=== PATIENT | female | born 1955 ===

== ENCOUNTER 2018-09-18 06:34 | Inpatient (IN) | payer MEDICARE, OTHER ==
[2018-09-18] MEDS ORDERED: Absorbable Gelatin Sponge Size 12-7 ONE (07:11)
[2018-09-18] MEDS ORDERED: Bupivacaine 0.5% Inj(30mL) ONE (07:12)
[2018-09-18] MEDS ORDERED: Thrombin Topical 5,000 Int Units Spray Kit ONE (07:12)
[2018-09-18] MEDS ORDERED: Propofol 10 mg/ml Inj (20 ML) ONE (07:19)
[2018-09-18] MEDS ORDERED: Midazolam 2 MG/2 ML VIAL ONE (07:19)
[2018-09-18] MEDS ORDERED: Lidocaine 4% (Laryng-O-Jet) Kit MM ONE (07:20)
[2018-09-18] MEDS ORDERED: ePHEDrine 50 mg/ml Inj ONE (07:20)
[2018-09-18] MEDS ORDERED: Rocuronium 10 mg/ml (5 ml) ONE ×2 (07:20→08:52)
[2018-09-18] MEDS ORDERED: Succinylcholine 200 mg/10 ml Inj IV ONE (07:23)
--- NOTE | 2018-09-18 07:28 | CP.PCM.CON ---
History of Present Illness - History of Present Illness History of Present Illness: Neurosurgical H&P/consult: Dr. Elizabeth Patient is a 63 y/o female who presents for elective lumbar laminectomy and fusion due to chronic lower back pain. The patient has had non-traumatic lower back pain for many years that has progressively worsened over the past few months. The pain has hindered her daily activities including walking and stairclimbing. She has tried and failed conservative management with PT and oral meds. She has also had vague history of lower back surgery while in [facility] many years ago which did not help with her symptoms. The pain is daily, intermittent and dull in quality. The pain radiates to the RLE with occasional numbness/tingling. She denies any bowel/bladder dysfunction or saddle paresthesias. She denies any CP/SOB/N/V/D/fever/dysuria/melena. PMH: pre-DM, anxiety, HTN PSH: lower back surgery, cholecystectomy meds: as per med rec Allergy: apples SH: denies tobacco/ETOH/drug use Review of Systems - Review of Systems All systems: reviewed and no additional remarkable complaints except Review of Systems: as per HPI Past Patient History - Infectious Disease Hx of Infectious Diseases: None - Past Medical History & Family History Past Medical History?: Yes Past Family History: Reviewed and not pertinent - Past Social History Smoking Status: Never Smoked - CARDIAC Hx Cardiac Disorders: Yes Hx Hypercholesterolemia: Yes - PULMONARY Hx Respiratory Disorders: No - NEUROLOGICAL Hx Neurological Disorder: No HX Cerebrovascular Accident: No - HEENT Hx HEENT Problems: No - RENAL Hx Chronic Kidney Disease: No - ENDOCRINE/METABOLIC Hx Endocrine Disorders: No - HEMATOLOGICAL/ONCOLOGICAL Hx Blood Disorders: No Hx Anemia: No Hx Blood Transfusions: No - INTEGUMENTARY Hx Dermatological Problems: No - MUSCULOSKELETAL/RHEUMATOLOGICAL Hx Musculoskeletal Disorders: Yes Hx Arthritis: Yes Hx Back Pain: Yes Hx Herniated Disk: Yes (ON THE NECK) - GASTROINTESTINAL Hx Gastrointestinal Disorders: No Hx Gall Bladder Disease: No Hx Gastritis: No - GENITOURINARY/GYNECOLOGICAL Hx Genitourinary Disorders: No - PSYCHIATRIC Hx Emotional Abuse: No Hx Physical Abuse: No - SURGICAL HISTORY Hx Surgeries: Yes Hx Section: Yes Hx Cholecystectomy: Yes Hx Musculoskeletal Surgery: Yes (back surgery) Hx Open Heart Surgery: No Other/Comment: BACK SURGERY/GALLBLADDER;HERNIA SURGERY - ANESTHESIA Hx Anesthesia: Yes Hx Anesthesia Reactions: No Hx Malignant Hyperthermia: No Has any member of the family had a problem w/ anesthesia?: No Meds Allergies/Adverse Reactions: Allergies Allergy/AdvReac Type Severity Reaction Status Date / Time apple Allergy ITCHING Verified 11/12/16 08:54 Physical Exam - Constitutional Appears: Well, No Acute Distress - Head Exam Head Exam: ATRAUMATIC, NORMOCEPHALIC - Eye Exam Eye Exam: EOMI, Normal appearance - ENT Exam ENT Exam: Mucous Membranes Moist - Respiratory Exam Respiratory Exam: NORMAL BREATHING PATTERN - Back Exam Additional comments: Lumbar: old scar well healed diffuse midline and paraspinal tenderness sensation intact SP/DP/TN motor intact EHL/FHL/TA/G neg clonus b/l + SLR - Neurological Exam Neurological exam: Alert, CN II-XII Intact, Oriented x3 - Psychiatric Exam Psychiatric exam: Normal Affect, Normal Mood - Skin Skin Exam: Normal Color, Warm Results - Vital Signs Recent Vital Signs: Last Vital Signs Temp 97.8 F 09/18/18 06:59 Pulse 81 09/18/18 06:59 Resp 18 09/18/18 06:59 BP 115/77 09/18/18 06:59 Pulse Ox 98 09/18/18 06:59 - Impressions Impression: MRI of lumbar spine from outside facility reveals lumbar spondylosis at L3-4 and L4-5 Assessment & Plan (1) Lumbar spondylosis Assessment and Plan: Dr. Elizabeth has seen, examined the patient and reviewed her imaging. The plan is to perform lumbar laminectomy and fusion at L3-4 and L4-L5, possible other levels. Risks/benefits/alternatives were explained to the patient who understands and agrees to proceed with the surgery above. NPO Admit to Dr. Garcia D/w Dr. Elizabeth who agrees with above Status: Acute - Date & Time Date: 09/18/18 Time: 07:15
[2018-09-18] MEDS ORDERED: Lactated Ringer's 1,000 ML IV ONE ×2 (07:49→09:25)
[2018-09-18] MEDS ORDERED: Dexamethasone 4 mg/1 ml ONE (08:08)
[2018-09-18 08:29] VITALS: BMI 27.1
[2018-09-18] MEDS ORDERED: HEMOSTATIC MATRIX 10 ML DIS.NEEDLE TOP ONE (09:15)
[2018-09-18] MEDS ORDERED: Neostigmine 1:1000 (1 mg/ml) Inj ONE (09:50)
[2018-09-18] MEDS ORDERED: Bupivacaine 0.5% 50 ML IJ ONE (10:09)
[2018-09-18] MEDS ORDERED: Oxycodone/Acetaminophen 5/325 mg Tab PO PRN ×2 (10:29)
[2018-09-18] MEDS ORDERED: HYDROmorphone 0.5 mg/0.5 ml ISec IVP PRN (10:54)
[2018-09-18] MEDS ORDERED: Lactated Ringer's 1,000 ML IV SCH ×2 (11:00→12:45)
--- NOTE | 2018-09-18 12:30 | PCM.SURG1 ---
Surgeon's Initial Post Op Note - Surgeon's Notes Surgeon: Ian Elizabeth MD Hired Hand: Nilesh Marcial PA-C Type of Anesthesia: General Endo Anesthesia Administered By: Kellee Chu MD Pre-Operative Diagnosis: Lumbar spondylosis Operative Findings: See complete operative report Post-Operative Diagnosis: Lumbar spondylosis at L3-4 and L4-5 Operation Performed: Lumbar laminectomy and fusion at L3-4 and L4-5 Specimen/Specimens Removed: none Estimated Blood Loss: EBL {In ML}: 50 Blood Products Given: N/A Drains Used: Elian Wesley (x 2 bilateral back) Post-Op Condition: Good Date of Surgery/Procedure: 09/18/18 Time of Surgery/Procedure: 08:10
[2018-09-18] MEDS ORDERED: DiphenhydrAMINE 50 mg/ml Inj IVP PRN (12:32)
[2018-09-18] MEDS ORDERED: DiphenhydrAMINE 50 mg/ml Inj ONE (12:36)
--- NOTE | 2018-09-18 13:49 | RAD ---
Date of service: 09/18/2018 PROCEDURE: Fluoroscopic assistance in excess of 1 hour. HISTORY: PLIF COMPARISON: None. TECHNIQUE: Standard protocol for this study/examination. FINDINGS: Total fluoroscopic time (continuous mode) utilized during the procedure 58.6 seconds. Total exam DLP: 48.63 (mGy). IMPRESSION: Submitted images from the current procedure: 2.0
[2018-09-18] MEDS: ceFAZolin 1 GM in Sodium Chloride 0.9% 100 ML IVPB SCH (17:11)
--- NOTE | 2018-09-18 22:35 | OP ---
PROCEDURE DATE: 09/18/2018 PREOPERATIVE DIAGNOSIS: Lumbar spondylosis. POSTOPERATIVE DIAGNOSIS: Lumbar spondylosis. PROCEDURE: L3, L4, L5 pedicle screw fixation, instrumentation using spinal elements, L3 and L4 and L5 laminectomy and L3 to L5 posterolateral fusion. Fluoroscopy has been used. Microscopy has been used. SURGEON: Ian Elizabeth MD MOLD SWABBER: Nilesh Marcial, physician certified ophthalmic surgical assistant who helped me to perform the surgery. DESCRIPTION OF PROCEDURE: The patient was brought to the operating room, anesthetized with general endotracheal anesthesia, placed in a prone position on the Elian table. Care was taken to protect all pressure points. Back of the lumbar area was thoroughly prepped and draped in a standard sterile manner after marking for skin incision for lumbar laminectomy. The previously made skin incision scar has been noted. After prepping and draping the area, skin has been incised. Bleeding skin has been controlled with bipolar contract clerk automobile. After using the Bovie contract clerk automobile, paraspinal muscles have been detached, attachments of spinous process, lamina of L3, L4, L5 bilaterally. Identification of the levels has been done with the help of fluoroscopy by using a traditional landmark, point of entry noted for pedicles of L3, L4, L5. Initially, a K-wire and later a drill has been used in order to enter the pedicles. Polyaxial titanium screws of spinal elements have been placed. Bone was found to be relatively soft. Titanium rods have been placed. Cap nuts have been used in order to secure them. After this under magnification on the right side, hemilaminotomy and medial facetectomy done at L3-L4 and L4-L5. The previously done surgery resultant scar tissue has been removed. Foraminotomy was performed. Decompression has been achieved at L3-L4 and L4-L5. After that lateral aspect of the facet joints and transverse process have been decorticated. Demineralized bone placed in the area achieving a posterolateral fusion. After that hemostasis was best achieved. Elian drain was placed on the wound and brought out through a separate stab neck skin incision. Muscles and fascia were closed with 1 Vicryl, subcutaneous tissue with 3-0 Vicryl, skin has been done with intradermal stitches. The patient tolerated the procedure. After the procedure, mobilized to the recovery room in stable condition. Ian Elizabeth MD [facility] # [id number]
[2018-09-19] MEDS: ceFAZolin 1 GM in Sodium Chloride 0.9% 100 ML IVPB SCH ×3 (00:25→16:17)
[2018-09-19 07:08] LABS: MEAN CELL VOLUME 80.4 fl (81.0-99.0); MEAN CORPUSCULAR HEMOGLOBIN 26.6 pg (27.0-31.0); MEAN CORPUSCULAR HGB CONC 33.1 g/dL (33.0-37.0); RBC 4.13 Mil/uL (3.80-5.20); RED CELL DISTRIBUTION WIDTH 13.7 % (11.5-14.5); WHITE BLOOD COUNT 11.1 K/uL (4.8-10.8)
[2018-09-19 07:15] LABS: BLOOD UREA NITROGEN 15 mg/dl (7-17); CALCIUM 8.9 mg/dL (8.4-10.2); GFR NON-AFRICAN AMERICAN > 60
[2018-09-19] MEDS: Cholecalciferol 1,000 INTLU TAB PO SCH (09:02)
--- NOTE | 2018-09-19 16:15 | CP.PCM.PN ---
Subjective - Date & Time of Evaluation Date of Evaluation: 09/19/18 Time of Evaluation: 15:30 - Subjective Subjective: Patient seen and examined at bedside comfortable. Pain is well controlled. Able to ambulate with PT without issues. Complaining of RLE spasm which was presents preop, but is more pronounced today. Objective - Vital Signs/Intake and Output Vital Signs (last 24 hours): Temp Pulse Resp BP Pulse Ox 98 F 81 20 102/64 92 L 09/19/18 16:11 09/19/18 16:11 09/19/18 16:11 09/19/18 16:11 09/19/18 16:11 Intake and Output: 09/19/18 09/19/18 06:59 18:59 Intake Total 1000 Output Total 120 Balance 880 - Medications Medications: Current Medications Acetaminophen (Tylenol 325mg Tab) 650 mg PO Q4 PRN PRN Reason: Fever 101 degrees fahrenheit Alprazolam (Xanax) 0.25 mg PO ONCE PRN PRN Reason: Anxiety Atorvastatin Calcium (Lipitor) 20 mg PO DAILY [facility] Last Admin: 09/19/18 09:02 Dose: 20 mg Cholecalciferol (Vitamin D) 5,000 intlu PO DAILY [facility] Last Admin: 09/19/18 09:02 Dose: 5,000 intlu Cyclobenzaprine HCl (Flexeril) 5 mg PO Q8 PRN PRN Reason: Muscle spasm Dexamethasone (Decadron) 4 mg PO Q8 [facility] Last Admin: 09/19/18 09:02 Dose: 4 mg Docusate Sodium (Colace) 100 mg PO BID [facility] Last Admin: 09/19/18 09:00 Dose: 100 mg Hydromorphone HCl (Dilaudid) 0.5 mg IVP Q10M PRN PRN Reason: Pain, moderate (4-7) Last Admin: 09/19/18 14:40 Dose: 0.5 mg Cefazolin Sodium 1 gm/ Sodium (Chloride) 100 mls @ 100 mls/hr IVPB Q8 [facility]; Protocol Last Admin: 09/19/18 11:49 Dose: 100 mls/hr Morphine Sulfate (Morphine) 2 mg IVP Q4 PRN PRN Reason: Pain, severe (8-10) Last Admin: 09/19/18 09:05 Dose: 2 mg Ondansetron HCl (Zofran Inj) 4 mg IVP Q4 PRN PRN Reason: Nausea/Vomiting Oxycodone/Acetaminophen (Percocet 5/325 Mg Tab) 2 tab PO Q4 PRN PRN Reason: Pain, moderate (4-7) Stop: 09/21/18 10:30 Oxycodone/Acetaminophen (Percocet 5/325 Mg Tab) 1 tab PO Q4 PRN PRN Reason: Pain, Mild (1-3) Stop: 09/21/18 10:30 - Labs Labs: 09/19/18 06:50 09/19/18 06:50 - Back Exam Additional comments: Abd binder in place Dressings CDI CLARI drains intact with moderate drainage sensation intact SP/DP/TN motor intact EHL/FHL continuous rhythmic spasm of RLE, decreased when at rest Assessment and Plan (1) Lumbar spondylosis Assessment & Plan: POD# 1 s/p Lumbar laminectomy and fusion L3-5 -Dr. Elizabeth recommends neurology consult for RLE spasms -maintain drains due to large output, will monitor -PT/OT -pain controlled -d/w Dr. Elizabeth who agrees with above Status: Acute
[2018-09-20] MEDS: ceFAZolin 1 GM in Sodium Chloride 0.9% 100 ML IVPB SCH ×3 (00:31→17:08)
--- NOTE | 2018-09-20 02:01 | CP.PCM.HP ---
History of Present Illness - History of Present Illness History of Present Illness: CC: Lower back pain. HPI: 63 y/o female with a PMH of chronic back problems is currently admitted to the medical-surgical unit s/p lumbar laminectomy with Dr. Elizabeth (neurosurgery). At present, the pt reports doing well and in minimal pain post-operatively. CLARI drains are currently draining serosanguinous fluid in a moderate amount. The pt is currently complaining of continuous, involuntary tremor/spasm to the RLE. PMH: Pre-DM, anxiety, HTN. PSH: Lower back surgery, cholecystectomy. Allergies: Apple. Review of Systems: Reviewed and no additional remarkable complaints except RLE spasm/tremor. Objective Appears: Calm, Non-toxic, No Acute Distress. Head Exam: NORMAL INSPECTION, normocephalic. Eye Exam: Normal eye inspection, EOMI, PERRLA. Respiratory Exam: NORMAL BREATHING PATTERN, breath sounds CTA. Cardiovascular Exam: +S1, +S2. RRR. GI & Abdominal Exam: Soft, non-tender, non-distended. Neurological Exam: Alert, awake, and oriented x3. RLE involuntary tremor/spasm noted. Psychiatric exam: Calm and cooperative. Skin exam: Normal color, warm and dry. Assessment/Impression/Plan: 1.) Lumbar Laminectomy/RLE spasm -S/P lumbar laminectomy, day 1 post-op. -Trial Cylobenzaprine for muscle spasm. Consider adding gabapentin/lyrica if no relief alone. -Cannot rule out anxiety as a potential cause of the tremor, continue anxiolytic medication. -On decadron taper. -Monitor drainage from CLARI drains in anticipation of drain removal. -Morphine/Percocet for pain. -Neurology consult ordered. -All consults input appreciated. -Continue current treatment. Present on Admission - Present on Admission Any Indicators Present on Admission: No Past Patient History - Infectious Disease Hx of Infectious Diseases: None - Past Medical History & Family History Past Medical History?: Yes Past Family History: Reviewed and not pertinent - Past Social History Smoking Status: Never Smoked - CARDIAC Hx Cardiac Disorders: Yes Hx Hypercholesterolemia: Yes - PULMONARY Hx Respiratory Disorders: No - NEUROLOGICAL Hx Neurological Disorder: No HX Cerebrovascular Accident: No - HEENT Hx HEENT Problems: No - RENAL Hx Chronic Kidney Disease: No - ENDOCRINE/METABOLIC Hx Endocrine Disorders: No - HEMATOLOGICAL/ONCOLOGICAL Hx Blood Disorders: No Hx Anemia: No Hx Blood Transfusions: No - INTEGUMENTARY Hx Dermatological Problems: No - MUSCULOSKELETAL/RHEUMATOLOGICAL Hx Musculoskeletal Disorders: Yes Hx Arthritis: Yes Hx Back Pain: Yes Hx Herniated Disk: Yes (ON THE NECK) - GASTROINTESTINAL Hx Gastrointestinal Disorders: No Hx Gall Bladder Disease: No Hx Gastritis: No - GENITOURINARY/GYNECOLOGICAL Hx Genitourinary Disorders: No - PSYCHIATRIC Hx Emotional Abuse: No Hx Physical Abuse: No - SURGICAL HISTORY Hx Surgeries: Yes Hx Section: Yes Hx Cholecystectomy: Yes Hx Musculoskeletal Surgery: Yes (back surgery) Hx Open Heart Surgery: No Other/Comment: BACK SURGERY/GALLBLADDER;HERNIA SURGERY - ANESTHESIA Hx Anesthesia: Yes Hx Anesthesia Reactions: No Hx Malignant Hyperthermia: No Has any member of the family had a problem w/ anesthesia?: No Meds Allergies/Adverse Reactions: Allergies Allergy/AdvReac Type Severity Reaction Status Date / Time apple Allergy ITCHING Verified 11/12/16 08:54 Results - Vital Signs Recent Vital Signs: Last Vital Signs Temp 97.7 F 09/19/18 23:38 Pulse 81 09/19/18 23:38 Resp 20 09/19/18 23:38 BP 108/69 09/19/18 23:38 Pulse Ox 95 09/19/18 23:38 - Labs Result Diagrams: 09/19/18 06:50 09/19/18 06:50 Labs: Laboratory Results - last 24 hr 09/19/18 09/19/18 06:50 06:50 WBC 11.1 H RBC 4.13 Hgb 11.0 L Hct 33.2 L MCV 80.4 L MCH 26.6 L MCHC 33.1 RDW 13.7 Plt Count 324 Sodium 136 Potassium 4.2 Chloride 102 Carbon Dioxide 30 Anion Gap 8 L BUN 15 Creatinine 0.5 L Est GFR ( Amer) > 60 Est GFR (Non-Af Amer) > 60 Random Glucose 118 H Calcium 8.9 Assessment & Plan (1) Muscle spasm Status: Acute (2) Lumbar spondylosis Status: Acute
[2018-09-20 05:41] LABS: HEMOGLOBIN 10.9 g/dL (12.0-16.0); MEAN CELL VOLUME 81.6 fl (81.0-99.0); MEAN CORPUSCULAR HEMOGLOBIN 26.5 pg (27.0-31.0); MEAN CORPUSCULAR HGB CONC 32.5 g/dL (33.0-37.0); RBC 4.1 Mil/uL (3.80-5.20); RED CELL DISTRIBUTION WIDTH 14.1 % (11.5-14.5); WHITE BLOOD COUNT 12.6 K/uL (4.8-10.8)
[2018-09-20 05:56] LABS: BLOOD UREA NITROGEN 18 mg/dl (7-17); CALCIUM 8.9 mg/dL (8.4-10.2); GFR NON-AFRICAN AMERICAN > 60
[2018-09-20] MEDS: Cholecalciferol 1,000 INTLU TAB PO SCH (08:45)
--- NOTE | 2018-09-20 10:32 | CP.PCM.PN ---
Subjective - Date & Time of Evaluation Date of Evaluation: 09/20/18 Time of Evaluation: 10:24 - Subjective Subjective: Patient states she feels shaky again today. She says it happened yesterday after she took the pain medicine pill also. She says she doesn't like the the medication makes her feel and that maybe it is from anxiety and the medication. Offered patient psychiatry consult, and she says she doesn't think that is necessary. Denies CP/SOB/dizziness. Says it is improved with the flexeril Objective - Vital Signs/Intake and Output Vital Signs (last 24 hours): Temp Pulse Resp BP Pulse Ox 97.8 F 70 18 113/75 94 L 09/20/18 08:39 09/20/18 08:39 09/20/18 08:39 09/20/18 08:39 09/20/18 08:39 Intake and Output: 09/20/18 09/20/18 06:59 18:59 Intake Total 130 Output Total 60 Balance 70 - Medications Medications: Current Medications Acetaminophen (Tylenol 325mg Tab) 650 mg PO Q4 PRN PRN Reason: Fever 101 degrees fahrenheit Acetaminophen (Tylenol 325mg Tab) 650 mg PO Q4 PRN PRN Reason: Pain, Mild (1-3) Alprazolam (Xanax) 0.25 mg PO ONCE PRN PRN Reason: Anxiety Atorvastatin Calcium (Lipitor) 20 mg PO DAILY [facility] Last Admin: 09/20/18 08:45 Dose: 20 mg Cholecalciferol (Vitamin D) 5,000 intlu PO DAILY [facility] Last Admin: 09/20/18 08:45 Dose: 5,000 intlu Cyclobenzaprine HCl (Flexeril) 5 mg PO Q8 PRN PRN Reason: Muscle spasm Last Admin: 09/20/18 08:44 Dose: 5 mg Dexamethasone (Decadron) 4 mg PO Q12 [facility] Last Admin: 09/20/18 08:45 Dose: 4 mg Docusate Sodium (Colace) 100 mg PO BID [facility] Last Admin: 09/20/18 08:46 Dose: 100 mg Hydromorphone HCl (Dilaudid) 0.5 mg IVP Q10M PRN PRN Reason: Pain, moderate (4-7) Last Admin: 09/19/18 14:40 Dose: 0.5 mg Cefazolin Sodium 1 gm/ Sodium (Chloride) 100 mls @ 100 mls/hr IVPB Q8 [facility]; Protocol Last Admin: 09/20/18 08:43 Dose: 100 mls/hr Morphine Sulfate (Morphine) 2 mg IVP Q4 PRN PRN Reason: Pain, severe (8-10) Last Admin: 09/19/18 09:05 Dose: 2 mg Ondansetron HCl (Zofran Inj) 4 mg IVP Q4 PRN PRN Reason: Nausea/Vomiting Oxycodone/Acetaminophen (Percocet 5/325 Mg Tab) 2 tab PO Q4 PRN PRN Reason: Pain, moderate (4-7) Stop: 09/21/18 10:30 Oxycodone/Acetaminophen (Percocet 5/325 Mg Tab) 1 tab PO Q4 PRN PRN Reason: Pain, Mild (1-3) Stop: 09/21/18 10:30 Last Admin: 09/20/18 04:55 Dose: 1 tab Tramadol HCl (Ultram) 50 mg PO Q4 PRN PRN Reason: Pain, moderate (4-7) - Labs Labs: 09/20/18 05:35 09/20/18 05:35 - Back Exam Additional comments: CLARI 110 and 110 Patient visibly shaky to right hand and leg +ROM ankle/toes, sensation intact +DP/PT pulses calves soft NT neghomans Assessment and Plan (1) Lumbar spondylosis Assessment & Plan: POD#2 s/p L3-L5 fusion drains left intact per Dr. Elizabeth PT/OT VTE proph plan for d/c after drainage slows d/w Dr. Elizabeth agrees with above Status: Acute
--- NOTE | 2018-09-20 12:29 | CP.PCM.CON ---
History of Present Illness - History of Present Illness History of Present Illness: Neurology Consultation Consultation Requested by Nilesh Marcial PA-C Mrs. Bay is a 63 y/o female with a PMHx of pre-DM, anxiety, HTN, lower back surgery, and cholecystectomy. She was admitted to [facility] med-surg following a lumbar laminectomy and fusion at L3-L4 and L4-L5 with Dr. Elizabeth, neurosurgery. She is POD #2 today. Neurology has been consulted to assist in the management of the pt for a spasm to the right leg. Pt admits to me that she has had this right leg tremor, and sometimes right arm tremor, for 6 years. Pt admits that the tremors and back pain started at the same time, which was almost immediately after her . She has been seen by multiple neurologists as outpatient for this, both in the [place] and in her country of [facility]. She has had extensive imaging done, as well as a nerve conduction test; all of which were inconclusive. She was also tested for infectious causes such as Lyme disease, which was negative. Pt also states to me that it was once believed her tremors were 2/2 Parkinsons and she was started on PD medications. These meds were d/c but another neurologist that she saw for a second opinion. Pt states that she does suffer from bad anxiety, and she notices the tremors when she is anxious. She also notices the tremor when she takes pain medications, but it seems as though the back pain has contributed to the anxiety and tremors. When I saw her she did have a slight tremor to the RUE and RLE; none to the left side. Pt denies h/a, dizziness, visual changes, chest pain, palpitations, sob, cough, abd pain, n/v/d, dysuria, paresthesias, fever/chills, rashes. Review of Systems - Constitutional Constitutional: As Per HPI - EENT Eyes: As Per HPI Ears: As Per HPI Nose/Mouth/Throat: As Per HPI - Breasts Breasts: As Per HPI - Cardiovascular Cardiovascular: As Per HPI - Respiratory Respiratory: As Per HPI - Gastrointestinal Gastrointestinal: As Per HPI - Genitourinary Genitourinary: As Per HPI - Reproductive: Female Reproductive:Female: As Per HPI - Menstruation Menstruation: As Per HPI - Musculoskeletal Musculoskeletal: As Per HPI - Integumentary Integumentary: As Per HPI - Neurological Neurological: As Per HPI - Psychiatric Psychiatric: As Per HPI - Endocrine Endocrine: As Per HPI - Hematologic/Lymphatic Hematologic: As Per HPI Past Patient History - Infectious Disease Hx of Infectious Diseases: None - Past Medical History & Family History Past Medical History?: Yes Past Family History: Reviewed and not pertinent - Past Social History Smoking Status: Never Smoked Chewing Tobacco Use: No Cigar Use: No Occupation: unemployed Alcohol: None Drugs: Denies Home Situation {Lives}: With Family - CARDIAC Hx Cardiac Disorders: Yes Hx Hypercholesterolemia: Yes - PULMONARY Hx Respiratory Disorders: No - NEUROLOGICAL Hx Neurological Disorder: No HX Cerebrovascular Accident: No - HEENT Hx HEENT Problems: No - RENAL Hx Chronic Kidney Disease: No - ENDOCRINE/METABOLIC Hx Endocrine Disorders: No - HEMATOLOGICAL/ONCOLOGICAL Hx Blood Disorders: No Hx Anemia: No Hx Blood Transfusions: No - INTEGUMENTARY Hx Dermatological Problems: No - MUSCULOSKELETAL/RHEUMATOLOGICAL Hx Musculoskeletal Disorders: Yes Hx Arthritis: Yes Hx Back Pain: Yes Hx Herniated Disk: Yes (ON THE NECK) - GASTROINTESTINAL Hx Gastrointestinal Disorders: No Hx Gall Bladder Disease: No Hx Gastritis: No - GENITOURINARY/GYNECOLOGICAL Hx Genitourinary Disorders: No - PSYCHIATRIC Hx Emotional Abuse: No Hx Physical Abuse: No - SURGICAL HISTORY Hx Surgeries: Yes Hx Section: Yes Hx Cholecystectomy: Yes Hx Musculoskeletal Surgery: Yes (back surgery) Hx Open Heart Surgery: No Other/Comment: BACK SURGERY/GALLBLADDER;HERNIA SURGERY - ANESTHESIA Hx Anesthesia: Yes Hx Anesthesia Reactions: No Hx Malignant Hyperthermia: No Has any member of the family had a problem w/ anesthesia?: No Meds Allergies/Adverse Reactions: Allergies Allergy/AdvReac Type Severity Reaction Status Date / Time apple Allergy ITCHING Verified 11/12/16 08:54 - Medications Medications: Current Medications Acetaminophen (Tylenol 325mg Tab) 650 mg PO Q4 PRN PRN Reason: Fever 101 degrees fahrenheit Acetaminophen (Tylenol 325mg Tab) 650 mg PO Q4 PRN PRN Reason: Pain, Mild (1-3) Alprazolam (Xanax) 0.25 mg PO ONCE PRN PRN Reason: Anxiety Atorvastatin Calcium (Lipitor) 20 mg PO DAILY [facility] Last Admin: 09/20/18 08:45 Dose: 20 mg Cholecalciferol (Vitamin D) 5,000 intlu PO DAILY [facility] Last Admin: 09/20/18 08:45 Dose: 5,000 intlu Cyclobenzaprine HCl (Flexeril) 5 mg PO Q8 PRN PRN Reason: Muscle spasm Last Admin: 09/20/18 08:44 Dose: 5 mg Dexamethasone (Decadron) 4 mg PO Q12 [facility] Last Admin: 09/20/18 08:45 Dose: 4 mg Docusate Sodium (Colace) 100 mg PO BID [facility] Last Admin: 09/20/18 08:46 Dose: 100 mg Hydromorphone HCl (Dilaudid) 0.5 mg IVP Q10M PRN PRN Reason: Pain, moderate (4-7) Last Admin: 09/19/18 14:40 Dose: 0.5 mg Cefazolin Sodium 1 gm/ Sodium (Chloride) 100 mls @ 100 mls/hr IVPB Q8 [facility]; Protocol Last Admin: 09/20/18 08:43 Dose: 100 mls/hr Morphine Sulfate (Morphine) 2 mg IVP Q4 PRN PRN Reason: Pain, severe (8-10) Last Admin: 09/19/18 09:05 Dose: 2 mg Ondansetron HCl (Zofran Inj) 4 mg IVP Q4 PRN PRN Reason: Nausea/Vomiting Tramadol HCl (Ultram) 50 mg PO Q4 PRN PRN Reason: Pain, moderate (4-7) Physical Exam - Constitutional Appears: Well, Non-toxic, No Acute Distress - Head Exam Head Exam: ATRAUMATIC, NORMAL INSPECTION, NORMOCEPHALIC - Eye Exam Eye Exam: EOMI, Normal appearance, PERRL Pupil Exam: NORMAL ACCOMODATION, PERRL - ENT Exam ENT Exam: Mucous Membranes Moist - Neck Exam Neck exam: Positive for: Full Rom, Normal Inspection - Respiratory Exam Respiratory Exam: NORMAL BREATHING PATTERN. absent: Respiratory Distress - GI/Abdominal Exam GI & Abdominal Exam: Soft. absent: Tenderness - Extremities Exam Extremities exam: Positive for: full ROM, normal inspection. Negative for: calf tenderness, joint swelling, pedal edema Additional comments: slight tremor to RUE and RLE - Neurological Exam Neurological exam: Alert, CN II-XII Intact, Oriented x3, Reflexes Normal Additional comments: Slight tremor to RUE and RLE No focal motor or sensory deficits Reflexes normal b/l - Psychiatric Exam Psychiatric exam: Normal Affect, Normal Mood - Skin Skin Exam: Dry, Normal Color, Warm Results - Vital Signs Recent Vital Signs: Last Vital Signs Temp 97.8 F 09/20/18 08:39 Pulse 70 09/20/18 08:39 Resp 18 09/20/18 08:39 BP 113/75 09/20/18 08:39 Pulse Ox 94 L 09/20/18 08:39 - Labs Result Diagrams: 09/20/18 05:35 09/20/18 05:35 Labs: Laboratory Results - last 24 hr 09/20/18 09/20/18 05:35 05:35 WBC 12.6 H RBC 4.10 Hgb 10.9 L Hct 33.5 L MCV 81.6 MCH 26.5 L MCHC 32.5 L RDW 14.1 Plt Count 306 Sodium 136 Potassium 3.9 Chloride 103 Carbon Dioxide 27 Anion Gap 10 BUN 18 H Creatinine 0.4 L Est GFR ( Amer) > 60 Est GFR (Non-Af Amer) > 60 Random Glucose 131 H Calcium 8.9 Assessment & Plan (1) Tremor Assessment and Plan: This is a chronic condition that has been present for 6 years. Tremors may be triggered by anxiety and stress according to the pt's account of her symptoms. At this time we recommend that the pt follow up with neuro as outpatient for an EMG if not recently done. She may bring copies of her previous diagnostics to the office for review as well. Reconsult prn. Thank you for this consultation. Denisse Yang, [employer], [employer]MENT [employer]IST d/w Dr. Valdez Status: Chronic - Date & Time Date: 09/20/18 Time: 12:56
[2018-09-21] MEDS: ceFAZolin 1 GM in Sodium Chloride 0.9% 100 ML IVPB SCH (01:12)
[2018-09-21] MEDS: Cholecalciferol 1,000 INTLU TAB PO SCH (08:43)
[2018-09-22] MEDS: Cholecalciferol 1,000 INTLU TAB PO SCH (08:37)
[2018-09-22] MEDS ORDERED: Alum-Mag Hydrox-Simethicone Susp (30 mL) PO PRN (21:31)
[2018-09-23 07:33] VITALS: BP 105/66; PULSE 67; RESP 19; TEMP 97.8; O2SAT 97
--- NOTE | 2018-09-23 08:06 | CP.PCM.PN ---
Subjective - Date & Time of Evaluation Date of Evaluation: 09/20/18 Time of Evaluation: 11:00 - Subjective Subjective: Patient is doing well. Very anxious and claims that at times she has lower ext " shakes". Noted significant drain of more than 100 cc overnight. Has no fever. Has no leg pains. Objective - Vital Signs/Intake and Output Vital Signs (last 24 hours): Temp Pulse Resp BP Pulse Ox 97.8 F 67 19 105/66 97 09/23/18 07:32 09/23/18 07:32 09/23/18 07:32 09/23/18 07:32 09/23/18 07:32 Intake and Output: 09/23/18 09/23/18 06:59 18:59 Output Total 25 Balance -25 - Medications Medications: Current Medications Acetaminophen (Tylenol 325mg Tab) 650 mg PO Q4 PRN PRN Reason: Fever 101 degrees fahrenheit Acetaminophen (Tylenol 325mg Tab) 650 mg PO Q4 PRN PRN Reason: Pain, Mild (1-3) Last Admin: 09/23/18 02:40 Dose: 650 mg Al Hydrox/Mg Hydrox/Simethicone (Maalox Plus 30 Ml) 30 ml PO Q6 PRN PRN Reason: Indigestion / Heartburn Last Admin: 09/22/18 21:43 Dose: 30 ml Atorvastatin Calcium (Lipitor) 20 mg PO DAILY [facility] Last Admin: 09/22/18 08:37 Dose: 20 mg Cholecalciferol (Vitamin D) 5,000 intlu PO DAILY [facility] Last Admin: 09/22/18 08:37 Dose: 5,000 intlu Cyclobenzaprine HCl (Flexeril) 5 mg PO Q8 PRN PRN Reason: Muscle spasm Last Admin: 09/22/18 21:18 Dose: 5 mg Dexamethasone (Decadron) 2 mg PO DAILY [facility] Docusate Sodium (Colace) 100 mg PO BID [facility] Last Admin: 09/22/18 16:38 Dose: 100 mg Lorazepam (Ativan) 0.5 mg PO Q8 PRN PRN Reason: Anxiety Ondansetron HCl (Zofran Inj) 4 mg IVP Q4 PRN PRN Reason: Nausea/Vomiting - Labs Labs: 09/20/18 05:35 09/20/18 05:35 - Head Exam Head Exam: NORMAL INSPECTION - Eye Exam Eye Exam: Normal appearance - ENT Exam ENT Exam: Mucous Membranes Moist - Respiratory Exam Respiratory Exam: Clear to Ausculation Bilateral - Cardiovascular Exam Cardiovascular Exam: REGULAR RHYTHM - GI/Abdominal Exam GI & Abdominal Exam: Normal Bowel Sounds - Neurological Exam Neurological Exam: Awake, Oriented x3 Assessment and Plan (1) Lumbar spondylosis Status: Acute (2) Anxiety Status: Acute (3) Plantar fasciitis of right foot Status: Acute - Assessment and Plan (Free Text) Plan: Cont meds Cont tx Cont PT monitor drainage xanax
--- NOTE | 2018-09-23 08:23 | CP.PCM.PN ---
Subjective - Date & Time of Evaluation Date of Evaluation: 09/21/18 Time of Evaluation: 11:00 - Subjective Subjective: patient remains stable However still with a lot of drainage more than 100 over night Has no fever Continues to be anxious. Objective - Vital Signs/Intake and Output Vital Signs (last 24 hours): Temp Pulse Resp BP Pulse Ox 97.8 F 67 19 105/66 97 09/23/18 07:32 09/23/18 07:32 09/23/18 07:32 09/23/18 07:32 09/23/18 07:32 Intake and Output: 09/23/18 09/23/18 06:59 18:59 Output Total 25 Balance -25 - Medications Medications: Current Medications Acetaminophen (Tylenol 325mg Tab) 650 mg PO Q4 PRN PRN Reason: Fever 101 degrees fahrenheit Acetaminophen (Tylenol 325mg Tab) 650 mg PO Q4 PRN PRN Reason: Pain, Mild (1-3) Last Admin: 09/23/18 02:40 Dose: 650 mg Al Hydrox/Mg Hydrox/Simethicone (Maalox Plus 30 Ml) 30 ml PO Q6 PRN PRN Reason: Indigestion / Heartburn Last Admin: 09/22/18 21:43 Dose: 30 ml Atorvastatin Calcium (Lipitor) 20 mg PO DAILY [facility] Last Admin: 09/22/18 08:37 Dose: 20 mg Cholecalciferol (Vitamin D) 5,000 intlu PO DAILY [facility] Last Admin: 09/22/18 08:37 Dose: 5,000 intlu Cyclobenzaprine HCl (Flexeril) 5 mg PO Q8 PRN PRN Reason: Muscle spasm Last Admin: 09/22/18 21:18 Dose: 5 mg Dexamethasone (Decadron) 2 mg PO DAILY [facility] Docusate Sodium (Colace) 100 mg PO BID [facility] Last Admin: 09/22/18 16:38 Dose: 100 mg Lorazepam (Ativan) 0.5 mg PO Q8 PRN PRN Reason: Anxiety Ondansetron HCl (Zofran Inj) 4 mg IVP Q4 PRN PRN Reason: Nausea/Vomiting - Labs Labs: 09/20/18 05:35 09/20/18 05:35 - Head Exam Head Exam: NORMAL INSPECTION - Eye Exam Eye Exam: Normal appearance - ENT Exam ENT Exam: Mucous Membranes Moist - Respiratory Exam Respiratory Exam: Clear to Ausculation Bilateral - Cardiovascular Exam Cardiovascular Exam: REGULAR RHYTHM - GI/Abdominal Exam GI & Abdominal Exam: Soft, Normal Bowel Sounds Assessment and Plan (1) Lumbar spondylosis Status: Acute (2) Anxiety Status: Acute (3) Plantar fasciitis of right foot Status: Acute - Assessment and Plan (Free Text) Plan: Cont meds pain meds increase xanax PT ambulate
--- NOTE | 2018-09-23 08:35 | CP.PCM.PN ---
Subjective - Date & Time of Evaluation Date of Evaluation: 09/22/18 Time of Evaluation: 11:00 - Subjective Subjective: Patient remains stable Still with a lot of drainage more than 80 overnight. Remains very anxious despite xanax. Objective - Vital Signs/Intake and Output Vital Signs (last 24 hours): Temp Pulse Resp BP Pulse Ox 97.8 F 67 19 105/66 97 09/23/18 07:32 09/23/18 07:32 09/23/18 07:32 09/23/18 07:32 09/23/18 07:32 Intake and Output: 09/23/18 09/23/18 06:59 18:59 Output Total 25 Balance -25 - Medications Medications: Current Medications Acetaminophen (Tylenol 325mg Tab) 650 mg PO Q4 PRN PRN Reason: Fever 101 degrees fahrenheit Acetaminophen (Tylenol 325mg Tab) 650 mg PO Q4 PRN PRN Reason: Pain, Mild (1-3) Last Admin: 09/23/18 02:40 Dose: 650 mg Al Hydrox/Mg Hydrox/Simethicone (Maalox Plus 30 Ml) 30 ml PO Q6 PRN PRN Reason: Indigestion / Heartburn Last Admin: 09/22/18 21:43 Dose: 30 ml Atorvastatin Calcium (Lipitor) 20 mg PO DAILY [facility] Last Admin: 09/22/18 08:37 Dose: 20 mg Cholecalciferol (Vitamin D) 5,000 intlu PO DAILY [facility] Last Admin: 09/22/18 08:37 Dose: 5,000 intlu Cyclobenzaprine HCl (Flexeril) 5 mg PO Q8 PRN PRN Reason: Muscle spasm Last Admin: 09/22/18 21:18 Dose: 5 mg Dexamethasone (Decadron) 2 mg PO DAILY [facility] Docusate Sodium (Colace) 100 mg PO BID [facility] Last Admin: 09/22/18 16:38 Dose: 100 mg Lorazepam (Ativan) 0.5 mg PO Q8 PRN PRN Reason: Anxiety Ondansetron HCl (Zofran Inj) 4 mg IVP Q4 PRN PRN Reason: Nausea/Vomiting - Labs Labs: 09/20/18 05:35 09/20/18 05:35 - Head Exam Head Exam: NORMAL INSPECTION - Eye Exam Eye Exam: Normal appearance - ENT Exam ENT Exam: Mucous Membranes Moist - Respiratory Exam Respiratory Exam: Clear to Ausculation Bilateral - Cardiovascular Exam Cardiovascular Exam: REGULAR RHYTHM Assessment and Plan (1) Lumbar spondylosis Status: Acute (2) Anxiety Status: Acute (3) Plantar fasciitis of right foot Status: Acute - Assessment and Plan (Free Text) Plan: Con tmeds DC plans for am Dc xanax start ativan.
[2018-09-23] MEDS: Cholecalciferol 1,000 INTLU TAB PO SCH (08:55)
[2018-09-23 11:15] LABS: HEMOGLOBIN 11.9 g/dL (12.0-16.0); MEAN CELL VOLUME 80.4 fl (81.0-99.0); MEAN CORPUSCULAR HEMOGLOBIN 26.2 pg (27.0-31.0); MEAN CORPUSCULAR HGB CONC 32.6 g/dL (33.0-37.0); RBC 4.55 Mil/uL (3.80-5.20); RED CELL DISTRIBUTION WIDTH 13.8 % (11.5-14.5); WHITE BLOOD COUNT 12.9 K/uL (4.8-10.8)
[2018-09-23 11:31] LABS: BLOOD UREA NITROGEN 17 mg/dl (7-17); CALCIUM 8.9 mg/dL (8.4-10.2); GFR NON-AFRICAN AMERICAN > 60
--- NOTE | 2018-09-23 14:30 | CP.PCM.PN ---
Subjective - Date & Time of Evaluation Date of Evaluation: 09/23/18 Time of Evaluation: 11:00 - Subjective Subjective: Patient seen and examined at bedside comfortable. Pain well controlled. OOB without issues. No other complaints. Objective - Vital Signs/Intake and Output Vital Signs (last 24 hours): Temp Pulse Resp BP Pulse Ox 97.8 F 67 19 105/66 97 09/23/18 07:32 09/23/18 07:32 09/23/18 07:32 09/23/18 07:32 09/23/18 07:32 Intake and Output: 09/23/18 09/23/18 06:59 18:59 Output Total 25 Balance -25 - Medications Medications: Current Medications Acetaminophen (Tylenol 325mg Tab) 650 mg PO Q4 PRN PRN Reason: Fever 101 degrees fahrenheit Acetaminophen (Tylenol 325mg Tab) 650 mg PO Q4 PRN PRN Reason: Pain, Mild (1-3) Last Admin: 09/23/18 11:33 Dose: 650 mg Al Hydrox/Mg Hydrox/Simethicone (Maalox Plus 30 Ml) 30 ml PO Q6 PRN PRN Reason: Indigestion / Heartburn Last Admin: 09/22/18 21:43 Dose: 30 ml Atorvastatin Calcium (Lipitor) 20 mg PO DAILY [facility] Last Admin: 09/23/18 08:57 Dose: 20 mg Cholecalciferol (Vitamin D) 5,000 intlu PO DAILY [facility] Last Admin: 09/23/18 08:55 Dose: 5,000 intlu Cyclobenzaprine HCl (Flexeril) 5 mg PO Q8 PRN PRN Reason: Muscle spasm Last Admin: 09/23/18 11:34 Dose: 5 mg Dexamethasone (Decadron) 2 mg PO DAILY [facility] Last Admin: 09/23/18 08:54 Dose: 2 mg Docusate Sodium (Colace) 100 mg PO BID [facility] Last Admin: 09/23/18 08:53 Dose: 100 mg Lorazepam (Ativan) 0.5 mg PO Q8 PRN PRN Reason: Anxiety Ondansetron HCl (Zofran Inj) 4 mg IVP Q4 PRN PRN Reason: Nausea/Vomiting - Labs Labs: 09/23/18 10:00 09/23/18 10:00 - Back Exam Additional comments: Abd binder in place Dressings CDI CLARI drains intact with minimal drainage sensation intact SP/DP/TN motor intact EHL/FHL Assessment and Plan (1) Lumbar spondylosis Assessment & Plan: POD#5 s/p Lumbar laminectomy and fusion L3-5 -drains removed, dressings changed -PT/OT -neurosurgically cleared for discharge to home -f/u in office in 2 weeks, call for appt -d/w Dr. Elizabeth who agrees with above Status: Acute
--- NOTE | 2018-09-23 19:33 | CP.PCM.DIS ---
Provider - Provider Date of Admission: 09/18/18 10:29 Attending physician: Tonny Garcia MD Consults: 09/18/18 10:29 Case Management Referral Routine Comment: Physician Instructions: Reason For Exam: Reason for Referral: Discharge Planning 09/18/18 12:37 Neuro Surgery Consult Routine Comment: Consulting Provider: Ian Kumar Consulting Physician: Ian Kumar Reason for Consult: postop nsx mgmt 09/19/18 16:04 Neurology Consult Routine Comment: Consulting Provider: Rashaad Valdez Consulting Physician: Rashaad Valdez Reason for Consult: right lower leg spasm Time Spent in preparation of Discharge (in minutes): 30 Diagnosis - Discharge Diagnosis (1) Lumbar spondylosis Status: Acute (2) Anxiety Status: Acute Hospital Course - Lab Results Lab Results: Most Recent Lab Values WBC 12.9 K/uL (4.8-10.8) H 09/23/18 10:00 RBC 4.55 Mil/uL (3.80-5.20) 09/23/18 10:00 Hgb 11.9 g/dL (12.0-16.0) L 09/23/18 10:00 Hct 36.6 % (34.0-47.0) 09/23/18 10:00 MCV 80.4 fl (81.0-99.0) L 09/23/18 10:00 MCH 26.2 pg (27.0-31.0) L 09/23/18 10:00 MCHC 32.6 g/dL (33.0-37.0) L 09/23/18 10:00 RDW 13.8 % (11.5-14.5) 09/23/18 10:00 Plt Count 378 K/uL (130-400) 09/23/18 10:00 Sodium 135 mmol/l (132-148) 09/23/18 10:00 Potassium 3.6 MMOL/L (3.6-5.0) 09/23/18 10:00 Chloride 98 mmol/L (98-107) 09/23/18 10:00 Carbon Dioxide 30 mmol/L (22-30) 09/23/18 10:00 Anion Gap 11 (10-20) 09/23/18 10:00 BUN 17 mg/dl (7-17) 09/23/18 10:00 Creatinine 0.5 mg/dl (0.7-1.2) L 09/23/18 10:00 Est GFR ( Amer) > 60 09/23/18 10:00 Est GFR (Non-Af Amer) > 60 09/23/18 10:00 Random Glucose 150 mg/dL (65-105) H 09/23/18 10:00 Calcium 8.9 mg/dL (8.4-10.2) 09/23/18 10:00 Blood Type O POSITIVE 09/18/18 07:35 Blood Type Confirm O POSITIVE 09/18/18 08:30 Antibody Screen Negative 09/18/18 07:35 BBK History Checked No verified bt 09/18/18 07:35 - Hospital Course Hospital Course: 63 y/o female with a PMH of chronic back problems admitted s/p lumbar laminectomy with Dr. Kumar. Patient had continued drainage for multiple days. Patient also developed some anxiety regarding medical status. Patient improved postoperatively and was discharged in stable condition without drains. Discharge Exam - Head Exam Head Exam: NORMAL INSPECTION - Eye Exam Eye Exam: Normal appearance - Respiratory Exam Respiratory Exam: NORMAL BREATHING PATTERN - Cardiovascular Exam Cardiovascular Exam: +S1, +S2 - Neurological Exam Neurological exam: Alert, Oriented x3 - Psychiatric Exam Psychiatric exam: Normal Affect, Normal Mood - Skin Skin Exam: Normal Color, Warm Discharge Plan - Discharge Medications Prescriptions: Cyclobenzaprine [Flexeril] 5 mg PO Q8 PRN #20 tab PRN Reason: Muscle Spasm Dexamethasone [Decadron] 2 mg PO DAILY 4 Days tab LORazepam [Ativan] 0.5 mg PO Q8 PRN #10 tab PRN Reason: Anxiety - Follow Up Plan Condition: STABLE Disposition: HOME/ ROUTINE Instructions: Laminectomy (DC), Postspine Surgery Precautions Additional Instructions: follow up with dr kumra as directed 1-2 weeks Referrals: Ian Kumar MD [Staff Provider] - Rashaad Valdez MD [Medical Doctor] -
== END 2018-09-23 14:47 | disposition home or self-care (01) | DRG 460 ==
LOC: H.OPSURG 06:34 → H.MEDSURG1 10:29
PROVIDERS: ADMIT Family Medicine; ATTEND Family Medicine
PROC: 0SG10K1 Fusion of 2 or more Lumbar Vertebral Joints with Nonautologous Tissue Substitute, Posterior Approach, Posterior Column, Open Approach (ICD-10-PCS; principal; 2018-09-18 07:45)
DX: M47.816 Spondylosis without myelopathy or radiculopathy, lumbar region (principal); M62.838 Other muscle spasm; R25.1 Tremor, unspecified; R73.03 Prediabetes; I10 Essential (primary) hypertension; F41.9 Anxiety disorder, unspecified; E78.00 Pure hypercholesterolemia, unspecified; Z91.018 Allergy to other foods; M72.2 Plantar fascial fibromatosis